=== PATIENT | male | born 1980 | race Two or more races ===

== ENCOUNTER 2020-06-06 23:05 | Emergency (ER) | payer SELFPAY ==
[~2020-06-06] VITALS: Ht 172.7 cm; Wt 86.2 kg
[2020-06-07 01:00] LABS: Basophils # (auto) 0 10 ^3/uL (0-0.2); Basophils % (auto) 0.4 % (0.0-2.0); Eosinophils # (auto) 0.1 10 ^3/uL (0-0.8); Eosinophils % (auto) 0.5 % (0.0-7.0); Hematocrit 45.8 % (41.0-53.0); Hemoglobin 15.3 g/dL (13.5-17.5); Lymphocytes # (auto) 1.8 10 ^3/uL (0.4-5.4); Lymphocytes % (auto) 15.3 % (10.0-50.0); Mean Corpuscular Hemoglobin 31.9 pg (28.0-32.0); Mean Corpuscular Hgb Conc. 33.5 g/dL (32.0-36.0); Mean Corpuscular Volume 95.2 fL (80.0-100.0); Monocytes # (auto) 0.6 10 ^3/uL (0-1.3); Monocytes % (auto) 5.5 % (0.0-12.0); Neutrophils % (auto) 78.3 % (37.0-80.0); Platelet Count (auto) 357 10^3/uL (140-450); Red Blood Cells 4.81 10^6/uL (4.5-5.90); Red Cell Distribution Width 13.2 % (11.8-14.3); White Blood Cell 11.5 10^3/uL (4.4-10.8)
[2020-06-07 01:17] LABS: Potassium 3.9 mmol/L (3.5-5.1)
[2020-06-07 01:20] LABS: Albumin 3.9 g/dL (3.4-5.0); Calcium 8.6 mg/dL (8.5-10.1); Magnesium 2.2 mg/dL (1.6-2.6)
[2020-06-07 01:22] LABS: Bilirubin, Total 0.7 mg/dL (0.2-1.0); Total Protein 7.8 g/dL (6.4-8.2)
[2020-06-07 04:28] LABS: Urine Bacteria NONE SEEN /hpf (None Seen); Urine Blood Negative /uL (Negative); Urine Specific Gravity 1.025 (1.001-1.035); Urine WBC <1 /hpf (0 - 3)
[2020-06-07] MEDS ORDERED: HYDROcodone-ACET 5/325MG TAB PO ONE (04:45)
[2020-06-07] MEDS ORDERED: ONDANSETRON ODT 4 MG TAB PO ONE (04:45)
[2020-06-07 06:35] VITALS: BP 147/89
== END 2020-06-07 06:44 | disposition home or self-care (01) ==
LOC: ER 23:07
DX: M54.5 Low back pain (principal); E11.9 Type 2 diabetes mellitus without complications; K21.9 Gastro-esophageal reflux disease without esophagitis; E78.5 Hyperlipidemia, unspecified
CPT/HCPCS: 36415; 74176; 80053; 81001; 82150; 83690; 83735; 85025

== ENCOUNTER 2023-03-29 06:38 | Inpatient (IN) | payer MEDICAID, OTHER ==
[~2023-03-29] VITALS: Ht 174 cm; Wt 96.8 kg
[2023-03-29] MEDS ORDERED: ONDANSETRON HCL 4 MG/2 ML VIAL IV ONE (08:30)
[2023-03-29] MEDS ORDERED: OCTREOTIDE ACETATE 100 MCG in SODIUM CHL 0.9% 50 ML IV ONE (08:30)
[2023-03-29] MEDS ORDERED: PANTOPRAZOLE 80 MG in SODIUM CHL 0.9% 100 ML IV ONE (08:30)
[2023-03-29] MEDS ORDERED: PANTOPRAZOLE 40mg/50ML NS AE 50 ML IV ONE (08:30)
[2023-03-29] MEDS ORDERED: SODIUM CHLORIDE 0.9% 1,000 ML IV ONE ×3 (08:30→11:00)
[2023-03-29 09:08] VITALS: O2SAT 98
[2023-03-29 09:23] LABS: Basophils # (auto) 0.1 10 ^3/uL (0-0.2); Basophils % (auto) 0.5 % (0.0-2.0); Eosinophils # (auto) 0.3 10 ^3/uL (0-0.8); Eosinophils % (auto) 2.8 % (0.0-7.0); Hematocrit 44.2 % (41.0-53.0); Hemoglobin 15.2 g/dL (13.5-17.5); Lymphocytes # (auto) 2.4 10 ^3/uL (0.4-5.4); Mean Corpuscular Hemoglobin 33.7 pg (28.0-32.0); Mean Corpuscular Hgb Conc. 34.3 g/dL (32.0-36.0); Mean Corpuscular Volume 98.2 fL (80.0-100.0); Monocytes # (auto) 0.8 10 ^3/uL (0-1.3); Monocytes % (auto) 7.7 % (0.0-12.0); Neutrophils # (auto) 6.6 10 ^3/uL (1.6-8.6); Nucleated Red Blood Cells % 0.1 %; Red Blood Cells 4.51 10^6/uL (4.5-5.90); Red Cell Distribution Width 13.6 % (11.8-14.3); White Blood Cell 10.2 10^3/uL (4.4-10.8)
[2023-03-29 09:26] LABS: Alanine Aminotransferase 159 U/L (7-40); Albumin 4.7 g/dL (3.2-4.8); Alkaline Phosphatase 195 U/L (46-116); Anion Gap 8 (5-15); Aspartate Aminotransferase 166 U/L (13-40); BUN/Creatinine Ratio 16.3 (10.0-20.0); Blood Urea Nitrogen 13 mg/dL (9-23); Calcium 9.6 mg/dL (8.7-10.4); Carbon Dioxide 25 mmol/L (20-30); Chloride 103 mmol/L (98-107); Glucose 129 mg/dL (74-106); Lipase 44 U/L (12-53); Magnesium 2.2 mg/dL (1.6-2.6); Potassium 4.2 mmol/L (3.5-5.1); Sodium 136 mmol/L (136-145)
[2023-03-29 09:27] LABS: Bilirubin, Total 1.7 mg/dL (0.2-1.0); Total Protein 8.2 g/dL (5.7-8.2)
[2023-03-29] MEDS: OCTREOTIDE ACETATE 500 MCG in SODIUM CHL 0.9% 99 ML IV SCH ×3 (09:39→21:21)
[2023-03-29] MEDS ORDERED: AZITHROMYCIN 500MG/ 250ML 250 ML IV ONE (09:45)
[2023-03-29] MEDS ORDERED: LORazepam 2MG/ML-1ML VIAL IV ONE (09:45)
[2023-03-29] MEDS ORDERED: cefTRIAXone 1GM/50ML D5W 50 ML IV ONE (09:45)
[2023-03-29 09:52] LABS: INR 1.04 (0.9-1.15); Prothrombin Time 10.9 sec (9.3-11.8)
[2023-03-29] MEDS ORDERED: PANTOPRAZOLE 40mg/50ML NS AE 50 ML IV SCH (11:00)
[2023-03-29] MEDS ORDERED: chlordiazePOXIDE HCL 25 MG CAP PO ONE (11:00)
[2023-03-29] MEDS ORDERED: LORazepam 2MG/ML-1ML VIAL IV PRN (11:00)
[2023-03-29] MEDS ORDERED: OCTREOTIDE ACETATE 500 MCG in SODIUM CHL 0.9% 99 ML IV SCH (11:00)
[2023-03-29] MEDS ORDERED: ACETAMINOPHEN 325 MG TAB PO PRN (11:15)
[2023-03-29] MEDS ORDERED: MORPHINE SULFATE INJ 2 MG/ml SYRG IV PRN (11:15)
[2023-03-29] MEDS ORDERED: NITROGLYCERIN 0.4 MG SL TAB SL PRN (11:15)
[2023-03-29] MEDS ORDERED: ONDANSETRON HCL 4 MG/2 ML VIAL IV PRN (11:15)
[2023-03-29] MEDS: SODIUM CHLORIDE 0.9% 1,000 ML IV SCH ×2 (11:31→18:46)
[2023-03-29 12:13] LABS: Triglycerides 216 mg/dL (< 150)
[2023-03-29 12:14] LABS: Blood Alcohol < 3.0 mg/dL (<10); LDL Cholesterol 189 mg/dL (< 100)
[2023-03-29 12:15] LABS: Cholesterol 256 mg/dL (< 200); HDL Cholesterol 33 mg/dL (40-59)
[2023-03-29] MEDS: FOLIC ACID 1 MG, MULTIPLE VITAMIN 10 ML, MAGNESIUM SULF SDV 50% 8 MEQ, THIAMINE INJ 100... INJ SCH ×5 (12:26)
[2023-03-29 12:35] LABS: Magnesium 2.1 mg/dL (1.6-2.6)
[2023-03-29 15:23] VITALS: BP 127/83; PULSE 76; RESP 18; TEMP 98.2; O2SAT 95
[2023-03-29 17:39] LABS: Amphetamine Screen, Urine Neg (NEGATIVE); Barbiturate Scree,Urine Neg (NEGATIVE)
[2023-03-29 17:40] LABS: Benzodiazephine Screen, Urine Neg (NEGATIVE); Cannabinoid Screen, Urine Pos (NEGATIVE); Cocaine Screen, Urine Neg (NEGATIVE); Opiate Scree,Urine Neg (NEGATIVE); Phencyclidine Screen, Urine Neg (NEGATIVE)
[2023-03-29 17:46] LABS: Urine Bacteria NONE SEEN /hpf (None Seen); Urine Blood Negative /uL (Negative); Urine Clarity Clear (Clear); Urine Color Yellow (Yellow); Urine Protein, UAD Negative (Negative); Urine Specific Gravity 1.022 (1.001-1.035); Urine Urobilinogen Normal (Negative); Urine WBC 1 /hpf (0 - 3); Urine pH 5.5 (5.0-8.0)
[2023-03-29 20:00] VITALS: BP 128/85; PULSE 82; PULSE 88; RESP 18; TEMP 98.4; O2SAT 95
[2023-03-29 22:00] VITALS: BP 128/85; PULSE 82; RESP 18; TEMP 98.4; O2SAT 95
[2023-03-30] VITALS (8 sets, daily range): BP systolic 112–123; BP diastolic 75–93; PULSE 75–90; RESP 16–18; TEMP 98.1–98.5; O2SAT 91–99
[2023-03-30] MEDS: SODIUM CHLORIDE 0.9% 1,000 ML IV SCH ×3 (05:26→21:15)
[2023-03-30 07:06] LABS: Basophils # (auto) 0 10 ^3/uL (0-0.2); Basophils % (auto) 0.6 % (0.0-2.0); Eosinophils # (auto) 0.3 10 ^3/uL (0-0.8); Eosinophils % (auto) 3.2 % (0.0-7.0); Hematocrit 42.1 % (41.0-53.0); Hemoglobin 14.2 g/dL (13.5-17.5); Lymphocytes # (auto) 1.9 10 ^3/uL (0.4-5.4); Lymphocytes % (auto) 21.9 % (10.0-50.0); Mean Corpuscular Hemoglobin 33.5 pg (28.0-32.0); Mean Corpuscular Hgb Conc. 33.8 g/dL (32.0-36.0); Mean Corpuscular Volume 99.2 fL (80.0-100.0); Monocytes # (auto) 0.6 10 ^3/uL (0-1.3); Monocytes % (auto) 7.2 % (0.0-12.0); Neutrophils # (auto) 5.7 10 ^3/uL (1.6-8.6); Neutrophils % (auto) 67.1 % (37.0-80.0); Nucleated Red Blood Cells % 0.3 %; Red Blood Cells 4.25 10^6/uL (4.5-5.90); Red Cell Distribution Width 13.7 % (11.8-14.3); White Blood Cell 8.5 10^3/uL (4.4-10.8)
[2023-03-30 07:11] LABS: Alanine Aminotransferase 192 U/L (7-40); Albumin 4.2 g/dL (3.2-4.8); Alkaline Phosphatase 151 U/L (46-116); Anion Gap 6 (5-15); Aspartate Aminotransferase 267 U/L (13-40); Bilirubin, Total 2.2 mg/dL (0.2-1.0); Calcium 8.8 mg/dL (8.5-10.1); Carbon Dioxide 25 mmol/L (20-30); Chloride 104 mmol/L (98-107); Glucose 127 mg/dL (74-106); Sodium 135 mmol/L (136-145); Total Protein 7.6 g/dL (5.7-8.2)
[2023-03-30 07:12] LABS: BUN/Creatinine Ratio 6.8 (10.0-20.0); Blood Urea Nitrogen < 5 mg/dL (9-23)
[2023-03-30 07:13] LABS: INR 1.05 (0.9-1.15); Partial Thromboplastin Time 26.8 SEC (24.5-34.5)
[2023-03-30] MEDS ORDERED: MIDAZOLAM HCL 5 MG/ML-1ML VIAL ONE (08:07)
[2023-03-30] MEDS ORDERED: LIDOCAINE VISCOUS 2% 15ML UD ONE (08:07)
[2023-03-30] MEDS ORDERED: diphenhdrAMINE HCL 50 MG/1 ML VL ONE (08:07)
[2023-03-30] MEDS ORDERED: fentaNYL CITRATE 100 MCG/2 ML VL ONE (08:08)
[2023-03-30] MEDS: OCTREOTIDE ACETATE 500 MCG in SODIUM CHL 0.9% 99 ML IV SCH (08:35)
[2023-03-30] MEDS ORDERED: cefTRIAXone 1GM/50ML D5W 50 ML IV ONE (12:45)
[2023-03-30] MEDS ORDERED: AZITHROMYCIN 500MG/ 250ML 250 ML IV ONE (12:45)
[2023-03-30] MEDS ORDERED: IOHEXOL 350 MG/ML 100ML IJ ONE (13:03)
[2023-03-30] MEDS ORDERED: MIDAZOLAM HCL 5 MG/ML-1ML VIAL IV ONE ×3 (16:35→16:41)
[2023-03-30] MEDS ORDERED: fentaNYL CITRATE 100 MCG/2 ML VL IV ONE ×2 (16:35→16:37)
[2023-03-30] MEDS ORDERED: diphenhdrAMINE HCL 50 MG/1 ML VL IV ONE ×2 (16:35→16:36)
[2023-03-30] MEDS: SUCRALFATE 1 GM/10 ML ORAL SUSP PO SCH ×2 (18:00→21:16)
[2023-03-30] MEDS: FOLIC ACID 1 MG, MULTIPLE VITAMIN 10 ML, MAGNESIUM SULF SDV 50% 8 MEQ, THIAMINE INJ 100... INJ SCH ×5 (18:20)
[2023-03-30] MEDS: PANTOPRAZOLE 40 MG TAB PO SCH (21:16)
[2023-03-31 08:00] VITALS: BP 122/77; PULSE 74; PULSE 77; RESP 16; RESP 18; TEMP 98.5; O2SAT 97
[2023-03-31] MEDS ORDERED: cefTRIAXone 1GM/50ML D5W 50 ML IV SCH (09:00)
[2023-03-31] MEDS: PANTOPRAZOLE 40 MG TAB PO SCH ×2 (10:00→22:10)
[2023-03-31] MEDS ORDERED: AZITHROMYCIN 500MG/ 250ML 250 ML IV SCH (10:00)
[2023-03-31] MEDS: SUCRALFATE 1 GM/10 ML ORAL SUSP PO SCH ×4 (11:30→22:10)
[2023-03-31 12:41] LABS: Magnesium 2.5 mg/dL (1.6-2.6)
[2023-03-31] MEDS ORDERED: DOXYCYCLINE 100MG/250ML 250 ML IV ONE (12:45)
[2023-03-31 12:46] LABS: Hepatitis B Surface Antigen Negative (Negative)
[2023-03-31 12:49] VITALS: TEMP 36.9
[2023-03-31 13:07] LABS: Hepatitis A Ab IgM Negative; Hepatitis B Core IgM Negative
[2023-03-31 13:08] LABS: Hepatitis C Antibody Negative (Negative)
[2023-03-31] MEDS: FOLIC ACID 1 MG, MULTIPLE VITAMIN 10 ML, MAGNESIUM SULF SDV 50% 8 MEQ, THIAMINE INJ 100... INJ SCH ×5 (14:32)
[2023-03-31] MEDS: DOXYCYCLINE 100MG/250ML 250 ML IV SCH (14:33)
[2023-03-31 14:35] LABS: Basophils # (auto) 0.1 10 ^3/uL (0-0.2); Basophils % (auto) 0.7 % (0.0-2.0); Eosinophils # (auto) 0.2 10 ^3/uL (0-0.8); Eosinophils % (auto) 2.4 % (0.0-7.0); Hematocrit 42.5 % (41.0-53.0); Hemoglobin 14.1 g/dL (13.5-17.5); Lymphocytes # (auto) 1.9 10 ^3/uL (0.4-5.4); Lymphocytes % (auto) 23.7 % (10.0-50.0); Mean Corpuscular Hemoglobin 33.6 pg (28.0-32.0); Mean Corpuscular Hgb Conc. 33.3 g/dL (32.0-36.0); Monocytes # (auto) 0.7 10 ^3/uL (0-1.3); Monocytes % (auto) 8.5 % (0.0-12.0); Neutrophils # (auto) 5.2 10 ^3/uL (1.6-8.6); Neutrophils % (auto) 64.7 % (37.0-80.0); Nucleated Red Blood Cells % 0.4 %; Red Blood Cells 4.21 10^6/uL (4.5-5.90); Red Cell Distribution Width 13.8 % (11.8-14.3)
[2023-03-31 15:29] LABS: Alanine Aminotransferase 158 U/L (7-40); Albumin 4.1 g/dL (3.2-4.8); Alkaline Phosphatase 146 U/L (46-116); Anion Gap 10 (5-15); Aspartate Aminotransferase 160 U/L (13-40); BUN/Creatinine Ratio 7.4 (10.0-20.0); Blood Urea Nitrogen 6 mg/dL (9-23); Calcium 8.8 mg/dL (8.5-10.1); Carbon Dioxide 22 mmol/L (20-30); Chloride 104 mmol/L (98-107); Glucose 124 mg/dL (74-106); Potassium 4.3 mmol/L (3.5-5.1); Sodium 136 mmol/L (136-145)
[2023-03-31 15:30] LABS: Bilirubin, Total 1.6 mg/dL (0.2-1.0); Total Protein 7.6 g/dL (5.7-8.2)
[2023-03-31 16:40] VITALS: BP 130/96; PULSE 78; RESP 18; TEMP 98.5; O2SAT 98
[2023-03-31 19:30] VITALS: BP 113/84; PULSE 73; PULSE 76; PULSE 88; RESP 18; TEMP 98.5; O2SAT 95
[2023-03-31 22:00] VITALS: BP 139/85; PULSE 73; RESP 19; TEMP 99; O2SAT 95
[2023-04-01 02:40] LABS: COVID19 ANTIGEN SOFIA FIA NEGATIVE (NEGATIVE); Rapid Influenza A Negative (Negative); Rapid Influenza B Negative (Negative)
[2023-04-01] MEDS: DOXYCYCLINE 100MG/250ML 250 ML IV SCH (02:53)
[2023-04-01 05:00] VITALS: BP 148/97; PULSE 72; RESP 18; TEMP 99.1; O2SAT 95
[2023-04-01] MEDS: SUCRALFATE 1 GM/10 ML ORAL SUSP PO SCH ×3 (06:02→14:18)
[2023-04-01 06:34] LABS: Alanine Aminotransferase 140 U/L (7-40); Albumin 4.5 g/dL (3.2-4.8); Alkaline Phosphatase 182 U/L (46-116); Anion Gap 9 (5-15); Aspartate Aminotransferase 113 U/L (13-40); BUN/Creatinine Ratio 7.1 (10.0-20.0); Bilirubin, Total 1.6 mg/dL (0.2-1.0); Blood Urea Nitrogen 6 mg/dL (9-23); Calcium 9.3 mg/dL (8.5-10.1); Carbon Dioxide 24 mmol/L (20-30); Chloride 102 mmol/L (98-107); Glucose 114 mg/dL (74-106); Potassium 3.8 mmol/L (3.5-5.1); Sodium 135 mmol/L (136-145)
[2023-04-01 06:35] LABS: Total Protein 8.1 g/dL (5.7-8.2)
[2023-04-01 08:00] VITALS: BP 148/97; PULSE 72; RESP 18; TEMP 99.1; O2SAT 96
[2023-04-01 09:00] VITALS: BP 129/78; PULSE 72; RESP 18; TEMP 98.3; O2SAT 100
[2023-04-01] MEDS: PANTOPRAZOLE 40 MG TAB PO SCH (09:08)
[2023-04-01] MEDS ORDERED: SUCR1SUS26 PO (09:24)
[2023-04-01] MEDS ORDERED: PANT40T PO (09:24)
[2023-04-01] MEDS ORDERED: DOX100T PO (09:24)
[2023-04-01] MEDS ORDERED: LISINOPRIL 5 MG TAB PO SCH (10:00)
[2023-04-01] MEDS ORDERED: DOXYCYCLINE 100 MG TAB/CAP PO SCH (10:00)
[2023-04-01 12:30] VITALS: BP 134/90; PULSE 68; RESP 19; TEMP 98.3; O2SAT 97
[2023-04-01] MEDS ORDERED: DOXYCYCLINE 100MG/250ML 250 ML IV SCH (15:00)
[2023-04-01] MEDS ORDERED: APIXABAN 5 MG TAB PO SCH (22:00)
== END 2023-04-01 14:00 | disposition home or self-care (01) | DRG 241 ==
LOC: ER 06:38 → TELE 11:04 → TELE-WESTW 15:09 → WEST WING 04-01 02:50
PROVIDERS: ADMIT Nurse Practitioner Family; ATTEND Internal Medicine Pulmonary Disease
PROC: 0DB68ZX Excision of Stomach, Via Natural or Artificial Opening Endoscopic, Diagnostic (ICD-10-PCS; 2023-03-30)
PROC: 0DB38ZX Excision of Lower Esophagus, Via Natural or Artificial Opening Endoscopic, Diagnostic (ICD-10-PCS; 2023-03-30)
PROC: 0DB98ZX Excision of Duodenum, Via Natural or Artificial Opening Endoscopic, Diagnostic (ICD-10-PCS; principal; 2023-03-30 16:30)
DX: K29.80 Duodenitis without bleeding (principal); J18.9 Pneumonia, unspecified organism; K83.1 Obstruction of bile duct; K75.9 Inflammatory liver disease, unspecified; R16.0 Hepatomegaly, not elsewhere classified; R04.2 Hemoptysis; I82.612 Acute embolism and thrombosis of superficial veins of left upper extremity; K76.0 Fatty (change of) liver, not elsewhere classified; K21.00 Gastro-esophageal reflux disease with esophagitis, without bleeding; K29.90 Gastroduodenitis, unspecified, without bleeding; E66.01 Morbid (severe) obesity due to excess calories; Z20.822 Contact with and (suspected) exposure to COVID-19; F10.139 Alcohol abuse with withdrawal, unspecified; I34.0 Nonrheumatic mitral (valve) insufficiency; Z68.32 Body mass index [BMI] 32.0-32.9, adult; E11.9 Type 2 diabetes mellitus without complications; F12.90 Cannabis use, unspecified, uncomplicated; E78.5 Hyperlipidemia, unspecified; F17.210 Nicotine dependence, cigarettes, uncomplicated; F41.9 Anxiety disorder, unspecified; K44.9 Diaphragmatic hernia without obstruction or gangrene; F19.10 Other psychoactive substance abuse, uncomplicated; Z82.49 Family history of ischemic heart disease and other diseases of the circulatory system; Z83.3 Family history of diabetes mellitus; Z71.3 Dietary counseling and surveillance; Z71.6 Tobacco abuse counseling
CPT/HCPCS: 36415; 43239; 71045; 71275; 74176; 76705; 80053; 80061; 80074; 80307; 80320; 81001; 82140; 83036; 83690; 83735; 83880; 84443; 84484; 85025; 85379; 85610; 85730; 86850; 86900; 86901; 87070; 87081; 87205; 87426; 87804; 93306; 93971; 96361; 96365; 96368; 96375; C9113; G0378; J0696; J2250; J2405; J3490

== ENCOUNTER 2025-05-06 22:45 | Inpatient (IN) | payer MEDICAID, OTHER ==
[~2025-05-06] VITALS: Ht 174 cm; Wt 94.5 kg
[~2025-05-06 22:45] MED LIST: DOX100T PO; PANT40T PO; SUCR1SUS26 PO
[2025-05-06 23:26] LABS: Hematocrit 47.2 % (41.0-53.0); Hemoglobin 16.2 g/dL (13.5-17.5); Mean Corpuscular Hemoglobin 33.1 pg (28.0-32.0); Mean Corpuscular Volume 96.3 fL (80.0-100.0); Nucleated Red Blood Cells % 0.0 %
[2025-05-07] VITALS (8 sets, daily range): BP systolic 123–132; BP diastolic 79–90; PULSE 80–98; RESP 18–19; TEMP 97.8–98.6; O2SAT 95–99
--- NOTE | 2025-05-07 00:06 | ED.PDOC ---
Musculoskeletal HPI Comments 45 year old male presents to ER for wound check. Patient presents to ER for evaluation of non-healing wound to right leg that he states occurred one week ago s/p trip/fall and hitting his right leg against rocks. He reports 4/10 tender pain to wound of right leg and reports yellow purulent drainage to the wound. Patient presents to ER ambulatory on arrival, with steady gait, in no distress. Denies fever, body aches, chills, calf pain, night sweats or any further symptoms/complaints Chief Complaint: Lower Extremity Time Seen by MD: 22:58 Primary Care Provider: UNKNOWN Reviewed Notes: Nurses Notes, Medications, Allergies Allergies: Coded Allergies: NO KNOWN ALLERGIES (Unverified , 03/29/23) Home Meds Active Scripts Doxycycline Monohydrate (Doxycycline Monohydrate) 100 Mg Tab, 100 MG PO Q12HR for 4 Days, #8 TAB Prov:AMALIA CUMMINGS MD 04/01/23 Sucralfate (CARAFATE SUSP) 1 Gm/10 Ml Ss, 1 GM PO QIDACHS for 30 Days, #120 ML Prov:AMALIA CUMMINGS MD 04/01/23 Pantoprazole Sodium Sesquihydr (Pantoprazole Sodium) 40 Mg Tab, 40 MG PO BID for 30 Days, #60 TAB Prov:AMALIA CUMMINGS MD 04/01/23 Information Source: Patient Mode of Arrival: Ambulatory Last Tetanus: Unknown Past Medical History PAST MEDICAL HISTORY: Anxiety, GERD, High Lipids, Liver, UTI'S Surgical History: Denies all surgeries Family History Family History: Unknown Social History Smoker: Non-Smoker Alcohol: Heavy Drugs: Marijuana Lives In: Home Constitutional: denies: chills, diaphoresis, fatigue, fever, malaise, sweats, weakness, others EENTM: denies: blurred vision, double vision, ear bleeding, ear discharge, ear drainage, ear pain, ear ringing, eye pain, eye redness, hearing loss, mouth pain, mouth swelling, nasal discharge, nose bleeding, nose congestion, nose pain, photophobia, tearing, throat pain, throat swelling, voice changes, others Respiratory: denies: cough, hemoptysis, orthopnea, SOB at rest, shortness of breath, SOB with excertion, stridor, wheezing, others Cardiovascular: denies: chest pain, dizzy spells, diaphoresis, Dyspnea on exertion, edema, irregular heart beat, left arm pain, lightheadedness, palpitations, PND, syncope, others Gastrointestinal: denies: abdomen distended, abdominal pain, blood streaked bowels, constipated, diarrhea, dysphagia, difficulty swallowing, hematemesis, melena, nausea, poor appetite, poor fluid intake, rectal bleeding, rectal pain, vomiting, others Genitourinary: denies: burning, dysuria, flank pain, frequency, hematuria, incontinence, penile discharge, penile sore, pain, testicle pain, testicle swelling, urgency, others Neurological: denies: dizziness, fainting, headache, left sided numbness, left sided weakness, numbness, paresthesia, pre-existing deficit, right sided numbness, right sided weakness, seizure, speech problems, tingling, tremors, weakness, others Musculoskeletal: denies: back pain, gout, joint pain, joint swelling, muscle pain, muscle stiffness, neck pain, others Integumetry: reports: others (As stated in HPI) Allergic/Immunocompromised: denies: Difficulty Healing, Frequent Infections, Hives, Itching, others Hematologic/Lymphatic: denies: anemia, blood clots, easy bleeding, easy bruising, swollen glands, others Endocrine: denies: excessive hunger, excessive sweating, excessive thirst, excessive urination, flushing, intolerance to cold, intolerance to heat, unexplained weight gain, unexplained weight loss, others Psychiatric: denies: anxiety, bipolar disorder, depression, hopeless, panic disorder, schizophrenia, sleepless, suicidal, others Physical Exam General Appearance: No Apparent Distress HEENT: PERRL/EOMI Neck: Full Range of Motion, Non-Tender, Normal Respiratory: Chest Non-Tender, Lungs Clear, No Accessory Muscle Use, No Respiratory Distress, Normal Breath Sounds Cardiovascular: No Murmur, No Gallop, Regular Rate/Rhythm Breast Exam: Deferred Gastrointestinal: NOT DONE Genitalia: Deferred Pelvic: Deferred Rectal: Deferred Extremities: No calf tenderness, Normal capillary refill, Normal range of motion Neurologic: Alert, No Motor Deficits, Normal Affect, Normal Mood, No Sensory Deficits Cerebellar Function: Normal Reflexes: Normal Skin: Dry, Warm Peripheral Pulses: 2+ dorsalis pedis (R), 2+ dorsalis pedis (L), 2+ Radial (R), 2+ Radial (L), 2+ Brachial (R), 2+ Brachial (L) Lymphatic: No Adenopathy Was a procedure done? Was a procedure done?: No Sedation Sedation?: No Images 1 - 3 cm x 3 cm wound to right anterior leg noted with mild yellow drainage. Moderate surrounding swelling/erythema/TTP noted to wound edges. No fluctuance appreciated Differential Diagnosis EXT Differential Diagnosis: Deep Vein Thrombosis, Fracture, Neurovascular injury, Other (Abscess) X-Ray, Labs, Meds, VS Vital Signs Date Time Temp Pulse Resp B/P (MAP) Pulse Ox O2 Delivery O2 Flow Rate FiO2 05/06/25 23:55 98.2 105 20 147/90 (109) 96 98.2 05/06/25 23:55 105 20 05/06/25 22:47 98.2 105 20 144/5 96 98.2 Lab Test 05/07/25 00:16 05/06/25 23:12 Range/Units Sodium Level 140 136-145 mmol/L Potassium Level 3.7 3.5-5.1 mmol/L Chloride Level 105 98-107 mmol/L Carbon Dioxide Level 20 20-31 mmol/L Anion Gap 15 5-15 Blood Urea Nitrogen 11 9-23 mg/dL Creatinine 0.90 0.700-1.30 mg/dL Glomerular Filtration Rate Calc 109 >90 mL/min BUN/Creatinine Ratio 12.2 10.0-20.0 Serum Glucose 113 H 74-106 mg/dL Lactic Acid Level 2.0 0.4-2.0 mmol/L Calcium Level 9.7 8.7-10.4 mg/dL White Blood Count 13.8 H 4.4-10.8 10^3/uL Red Blood Count 4.90 4.5-5.90 10^6/uL Hemoglobin 16.2 13.5-17.5 g/dL Hematocrit 47.2 41.0-53.0 % Mean Corpuscular Volume 96.3 80.0-100.0 fL Mean Corpuscular Hemoglobin 33.1 H 28.0-32.0 pg Mean Corpuscular Hemoglobin Concent 34.4 32.0-36.0 g/dL Red Cell Distribution Width 13.4 11.8-14.3 % Platelet Count 298 140-450 10^3/uL Mean Platelet Volume 8.1 6.9-10.8 fL Neutrophils (%) (Auto) 65.2 37.0-80.0 % Lymphocytes (%) (Auto) 25.5 10.0-50.0 % Monocytes (%) (Auto) 7.2 0.0-12.0 % Eosinophils (%) (Auto) 1.2 0.0-7.0 % Basophils (%) (Auto) 0.9 0.0-2.0 % Neutrophils # (Auto) 9.0 H 1.6-8.6 10 ^3/uL Lymphocytes # (Auto) 3.5 0.4-5.4 10 ^3/uL Monocytes # (Auto) 1.0 0-1.3 10 ^3/uL Eosinophils # (Auto) 0.2 0-0.8 10 ^3/uL Basophils # (Auto) 0.1 0-0.2 10 ^3/uL Nucleated Red Blood Cells 0.0 % Current Medications Medications (Trade) Dose Ordered Sig/Reilly Route Start Time Stop Time Status Last Admin Clindamycin Phosphate 50 ml @ 50 mls/hr ONCE ONCE IV 05/07/25 00:00 05/07/25 00:59 DC 05/07/25 00:31 Ceftriaxone Sodium 50 ml @ 100 mls/hr ONCE ONCE IV 05/07/25 00:00 05/07/25 00:29 DC 05/07/25 01:05 PATIENT: MACKENZIE CUELLAR: [id number]: [id number] : 1980 LOC: OVERFLOW ROOM / BED: [address] [place] [address] / AGE / SEX: 45 / M ADM STATUS: ADM IN SERVICE [id number] ORDERING PHYSICIAN: CARMEN JONES PROCEDURE(s): RTBFB - R TIB FIB XRAY REASON: right tib-fib pain ORDER NUMBER(s): [id number], ACCESSION NUMBER(s): [id number] MEDICAL RECORDS NUMBER: [id number] PROCEDURE: XY R TIB FIB XRAY DATE: 05/07/2025 12:40 AM HISTORY: right tib-fib pain COMPARISON: None FINDINGS/IMPRESSION: No fracture dislocation or other acute abnormality is seen. ATED BY: MOISÉS CRUZ MD DICTATED DATE/TIME: 05/07/25109 SIGNED BY: MOISÉS CRUZ MD SIGNED DATE/TIME: 05/07/25109 CC: CBC reviewed- + leukocytosis, + neutrophilia BMP reviewed without any significant abnormalities Lactic acid reviewed - normal Blood culture ordered Wound culture ordered Hep-Lock IV ordered Clindamycin 900 mg IV ordered Rocephin 1 g IV ordered Tdap ordered Right tib-fib x-ray ordered Patient verbalized understanding and agreeable with current plan of care Patient admitted to hospitalist for nonhealing wound on right lower extremity and need for IV antibiotics Images Reviewed?: Images reviewed and evaluated by me Time of 1ST Reevaluation: 23:44 Reevaluation 1ST: N/A Patient Education/Counseling: Diagnosis, Treatment, Prognosis, Need For Follow Up Family Education/Counseling: No Family Present Sepsis Sepsis Reasesment Focused Exam Orders: Laboratory Tests 05/07/25 00:16: Lactic Acid Level 2.0 Departure 1 Departure Time of Disposition: 00:03 Impression: Primary Impression: Cellulitis of right leg Additional Impression: Non-healing wound of right lower extremity Disposition: 09 ADMITTED INPATIENT Condition: Stable Critical Care Note Critical Care Time?: No Stability Stability form required: No Heart Score Heart Score: Heart Score Response (Comments) Value History N/A 0 EKG N/A 0 Age N/A 0 Risk Factors N/A 0 Troponin N/A 0 Total 0 CARMEN JONES May 07, 2025 00:06
[2025-05-07] MEDS: TETANUS-DIPTH-ACEL PERTUSSIS 0.5ML SYR Tdap IM ONE (00:23)
[2025-05-07] MEDS: CLINDAMYCIN 900MG IV 50 ML IV ONE (00:31)
[2025-05-07 00:45] LABS: Chloride 105 mmol/L (98-107); Potassium 3.7 mmol/L (3.5-5.1); Sodium 140 mmol/L (136-145)
[2025-05-07] MEDS ORDERED: ONDANSETRON HCL 4 MG/2 ML VIAL IV PRN (00:45)
[2025-05-07] MEDS ORDERED: ACETAMINOPHEN 325 MG TAB PO PRN (00:45)
[2025-05-07 00:46] LABS: Anion Gap 15 (5-15); Calcium 9.7 mg/dL (8.7-10.4); Carbon Dioxide 20 mmol/L (20-31)
[2025-05-07 00:51] LABS: BUN/Creatinine Ratio 12.2 (10.0-20.0); Blood Urea Nitrogen 11 mg/dL (9-23)
[2025-05-07 01:00] LABS: Glucose 113 mg/dL (74-106)
--- NOTE | 2025-05-07 01:13 | DVH ---
MEDICAL RECORDS NUMBER: [id number] PROCEDURE: XY R TIB FIB XRAY DATE: 05/07/2025 12:40 AM HISTORY: right tib-fib pain COMPARISON: None FINDINGS/IMPRESSION: No fracture dislocation or other acute abnormality is seen.
--- NOTE | 2025-05-07 04:14 | DVHHP2 ---
History of Present Illness Reason for Visit: Wound check History of Present Illness 45-year-old male presents for evaluation of nonhealing wound. Patient reports having an accident a week ago where he tripped and fell again some rocks. Patient reports having a nonhealing wound to his right leg with some discharge and redness. Denies fever or chills. No other acute complaints. Past Medical History Dyslipidemia, GERD Past Surgical History Denies Family History Noncontributory Smoke: No ALCOHOL: occassional Drugs: Marijuana Lives: with Family Review of Systems Review of Systems Review of systems are currently negative otherwise addressed in HPI. Allergies: Coded Allergies: NO KNOWN ALLERGIES (Unverified , 03/29/23) Medications Current Medications Medications Dose Ordered Sig/Reilly Route Start Time Stop Time Status Last Admin Dose Admin Ceftriaxone Sodium 50 ml @ 100 mls/hr DAILY IV 05/08/25 10:00 Clindamycin Phosphate 50 ml @ 50 mls/hr Q8HR IV 05/07/25 06:00 Acetaminophen/ Hydrocodone Bitart 1 tab Q6HP PRN PO 05/07/25 00:45 Ondansetron HCl 4 mg Q4HP PRN IV 05/07/25 00:45 Acetaminophen 650 mg Q6HP PRN PO 05/07/25 00:45 Exam Vital Signs Vital Signs Date Time Temp Pulse Resp B/P (MAP) Pulse Ox O2 Delivery O2 Flow Rate FiO2 05/07/25 03:41 98.4 85 18 125/79 (94) 97 98.4 Exam Gen: 45-year-old male in mild distress. Skin: Warm, dry, normal color and texture, no rash. HEENT: Normocephalic atraumatic, mucous membranes moist and pink. Neck: Cervical and supraclavicular nodes normal without enlargement, trachea is midline, thyroid gland is normal without masses. Pulmonary: Clear to auscultation and percussion bilaterally. Cardiac: Regular rate and rhythm. No murmur Abdomen: Soft, nontender, nondistended, bowel sounds present all 4 quadrants, no guarding, no rigidity, no organomegaly. Extremities: No cyanosis, clubbing, no edema Neuro: Cranial nerves II through XII grossly intact, normal affect and speech, no focal motor deficits. Labs/Xrays ORDERING PHYSICIAN: CARMEN JONES PROCEDURE(s): RTBFB - R TIB FIB XRAY REASON: right tib-fib pain ORDER NUMBER(s): [id number], ACCESSION NUMBER(s): [id number] MEDICAL RECORDS NUMBER: [id number] PROCEDURE: XY R TIB FIB XRAY DATE: 05/07/2025 12:40 AM HISTORY: right tib-fib pain COMPARISON: None FINDINGS/IMPRESSION: No fracture dislocation or other acute abnormality is seen. Labs Test 05/07/25 00:16 05/06/25 23:12 Range/Units Sodium Level 140 136-145 mmol/L Potassium Level 3.7 3.5-5.1 mmol/L Chloride Level 105 98-107 mmol/L Carbon Dioxide Level 20 20-31 mmol/L Anion Gap 15 5-15 Blood Urea Nitrogen 11 9-23 mg/dL Creatinine 0.90 0.700-1.30 mg/dL Glomerular Filtration Rate Calc 109 >90 mL/min BUN/Creatinine Ratio 12.2 10.0-20.0 Serum Glucose 113 H 74-106 mg/dL Lactic Acid Level 2.0 0.4-2.0 mmol/L Calcium Level 9.7 8.7-10.4 mg/dL White Blood Count 13.8 H 4.4-10.8 10^3/uL Red Blood Count 4.90 4.5-5.90 10^6/uL Hemoglobin 16.2 13.5-17.5 g/dL Hematocrit 47.2 41.0-53.0 % Mean Corpuscular Volume 96.3 80.0-100.0 fL Mean Corpuscular Hemoglobin 33.1 H 28.0-32.0 pg Mean Corpuscular Hemoglobin Concent 34.4 32.0-36.0 g/dL Red Cell Distribution Width 13.4 11.8-14.3 % Platelet Count 298 140-450 10^3/uL Mean Platelet Volume 8.1 6.9-10.8 fL Neutrophils (%) (Auto) 65.2 37.0-80.0 % Lymphocytes (%) (Auto) 25.5 10.0-50.0 % Monocytes (%) (Auto) 7.2 0.0-12.0 % Eosinophils (%) (Auto) 1.2 0.0-7.0 % Basophils (%) (Auto) 0.9 0.0-2.0 % Neutrophils # (Auto) 9.0 H 1.6-8.6 10 ^3/uL Lymphocytes # (Auto) 3.5 0.4-5.4 10 ^3/uL Monocytes # (Auto) 1.0 0-1.3 10 ^3/uL Eosinophils # (Auto) 0.2 0-0.8 10 ^3/uL Basophils # (Auto) 0.1 0-0.2 10 ^3/uL Nucleated Red Blood Cells 0.0 % SEPSIS Sepsis Screen Date sepsis recognized/suspect: May 06, 2025 Time Sepsis recognized/suspect: 2248 Recent Procedure: No On Antibiotic Therapy: No Respiratory Rate >20: No Heart Rate >90: No Temp<36 C (96.8 F) or >38.3 C: No SBP <90 or MAP <65 mmHG: No New Acute Mental Status Change: No Is the patient on CPAP, BIPAP,: No Physician Orders Blood Culture (05/06/25 23:54) R Tib Fib Xray (05/06/25 23:54) Heplock Iv (05/06/25 ) Wound Culture W/ Gs (05/06/25 23:58) Admit (05/07/25 00:39) Clindamycin 600mg Iv (Cleocin Iv) (05/07/25 06:00) Basic Metabolic Panel (05/08/25 04:00) Hydrocodone-Acet 5/325mg Tab ([place] 5/32 (05/07/25 00:45) Ondansetron Hcl (Zofran) (05/07/25 00:45) Complete Blood Count (05/08/25 04:00) Condition: Stable (05/07/25 00:40) Acetaminophen Tablet (Tylenol Tablet) (05/07/25 00:45) Bedrest With Bathroom Privileg (05/07/25 00:40) Ceftriaxone 1gm/50ml (Rocephin) (05/08/25 10:00) Vital Signs Date Time Temp Pulse Resp B/P (MAP) Pulse Ox O2 Delivery O2 Flow Rate FiO2 05/07/25 03:41 98.4 85 18 125/79 (94) 97 98.4 05/06/25 23:55 98.2 105 20 147/90 (109) 96 98.2 11/17/25 23:55 105 20 05/06/25 22:47 98.2 105 20 144/5 96 98.2 Laboratory Tests Test 05/06/25 23:12 05/07/25 00:16 White Blood Count 13.8 10^3/uL (4.4-10.8) H Lactic Acid Level 2.0 mmol/L (0.4-2.0) Medications Medications Dose Ordered Sig/Reilly Route Start Time Stop Time Status Last Admin Dose Admin Ceftriaxone Sodium 50 ml @ 100 mls/hr ONCE ONCE IV 05/07/25 00:00 05/07/25 00:29 DC 05/07/25 01:05 100 MLS/HR Clindamycin Phosphate 50 ml @ 50 mls/hr ONCE ONCE IV 05/07/25 00:00 05/07/25 00:59 DC 05/07/25 00:31 50 MLS/HR Assessment/Plan Assessment/Plan Assessment Right lower extremity infected wound Cellulitis Leukocytosis Plan Admit the patient to [facility] to the hospitalist Wound culture pending Rocephin/clindamycin Continue treatment per orders Plan discussed with: Patient My Orders Orders - SHILO SANCHES Procedure Category Date Status Time Admit ADMIT 05/07/25 Transmitted 00:39 Clindamycin 600mg Iv PHA 05/07/25 In Process (Cleocin Iv) 06:00 Basic Metabolic Panel LAB 05/08/25 Verified 04:00 Hydrocodone-Acet PHA 05/07/25 In Process 5/325mg Tab ([place] 00:45 Ondansetron Hcl PHA 05/07/25 In Process (Zofran) 00:45 Complete Blood Count LAB 05/08/25 Verified 04:00 Condition: Stable PEGGY 05/07/25 In Process 00:40 Acetaminophen Tablet PHA 05/07/25 In Process (Tylenol Tablet) 00:45 Bedrest With Bathroom PEGGY 05/07/25 In Process Privileg 00:40 Ceftriaxone 1gm/50ml PHA 05/08/25 In Process (Rocephin) 10:00 Date of Service: May 07, 2025 Billing Provider: SHILO SANCHES Common Visit Codes: [id number] INP/OBS CARE (MOD) SHILO SANCHES May 07, 2025 04:14
[2025-05-07] MEDS: CLINDAMYCIN 600MG IV 50 ML IV SCH (05:04)
[2025-05-07 08:40] LABS: Hematocrit 42.5 % (41.0-53.0); Hemoglobin 14.8 g/dL (13.5-17.5); Mean Corpuscular Hemoglobin 33.7 pg (28.0-32.0); Mean Corpuscular Volume 97.0 fL (80.0-100.0); Nucleated Red Blood Cells % 0.0 %
[2025-05-07 08:54] LABS: Albumin 4.5 g/dL (3.2-4.8); Anion Gap 11 (5-15); BUN/Creatinine Ratio 16.1 (10.0-20.0); Bilirubin, Total 0.9 mg/dL (0.2-1.0); Blood Urea Nitrogen 15 mg/dL (9-23); Calcium 9.2 mg/dL (8.7-10.4); Carbon Dioxide 23 mmol/L (20-31); Chloride 105 mmol/L (98-107); Magnesium 2.3 mg/dL (1.6-2.6); Potassium 3.8 mmol/L (3.5-5.1); Sodium 139 mmol/L (136-145); Total Protein 7.6 g/dL (5.7-8.2)
[2025-05-07 08:55] LABS: Alanine Aminotransferase 73 U/L (7-40); Alkaline Phosphatase 191 U/L (46-116); Glucose 126 mg/dL (74-106)
--- NOTE | 2025-05-07 10:19 | DVHPNRES ---
Progress Note Date Seen: May 07, 2025 Resident Creating Document: ULICES QUINONES RESDIENT Medical Necessity Reason Pt with a Central, PICC or Fol: No Subjective Review of Systems This is a 45-year-old male with no significant past medical history came to the hospital due to nonhealing traumatic injury below the right knee. Per patient, 1 week back he tripped, fell and hit his right smart on stone. Post fall, he had abrasion and sloughing of the skin, with mild bleeding. He denies loss of consciousness, nausea and vomiting. The wound progressively worsened, increased pain, and started to have scant amount purulent discharge. Today, patient seen and examined at the bedside. Patient is still complaining of pain of right knee. Objective vital signs Vital Sign Date Time Temp Pulse Resp B/P (MAP) Pulse Ox O2 Delivery O2 Flow Rate FiO2 05/07/25 09:01 97.8 92 18 131/80 (97) 96 97.8 05/07/25 03:41 Room Air* 0 21 Total Intake and Output 05/06/25 05/06/25 05/07/25 15:00 23:00 07:00 Intake Total 150 ml Balance 150 ml medications Current Medications Medications Dose Ordered Sig/Reilly Route Start Time Stop Time Status Last Admin Dose Admin Ceftriaxone Sodium 50 ml @ 100 mls/hr DAILY IV 05/08/25 10:00 Clindamycin Phosphate 50 ml @ 50 mls/hr Q8HR IV 05/07/25 06:00 05/07/25 05:04 50 MLS/HR Acetaminophen/ Hydrocodone Bitart 1 tab Q6HP PRN PO 05/07/25 00:45 Ondansetron HCl 4 mg Q4HP PRN IV 05/07/25 00:45 Acetaminophen 650 mg Q6HP PRN PO 05/07/25 00:45 Examination General Appearance: Alert, Oriented X3, Cooperative, No acute distress HEENT: Atraumatic, PERRLA, EOMI, Mucous membrane moist/pink Respiratory: Clear to auscultation, Normal air movement Cardiovascular: Regular rate, Normal S1, Normal S2, No murmurs, no chest wall tenderness Abdominal: Normal bowel sounds, Soft, No tenderness, No hepatospenomegaly, No masses Extremities: No clubbing, No cyanosis, No edema, Normal pulses, No tenderness/swelling Skin: 6 x 6 cm deep ulcer on on anterior surface of right smart, [id number]. With scant amount of purulent discharge, necrotic tissue on the surface, with redness of skin around the ulcer. Neuro: Normal gait, Normal speech, Strength at 5/5 X4 ext, Normal tone, Sensation intact, Cranial nerves 3-12 NL, Reflexes 2+ Psych/Mental Status: Mental status NL, Mood NL laboratory and microbiology Laboratory Tests 05/07/25 08:20 Test 05/07/25 08:20 Range/Units Serum Glucose 126 H 74-106 mg/dL Labs and/or images reviewed: Labs reviewed by me, Image(s) reviewed by me Problem List/Assessment/Plan Problem List/Assessment/Plan Infected traumatic wound, right smart, [id number] Sepsis due to above Transaminitis * X-ray shows, no fracture dislocation or other acute abnormality is seen Plan/recommendation: * Empiric antibiotic clindamycin * Pain killer * Wound and blood culture * Wound consult DIET: Regular diet CODE STATUS: Goal of care discussed for more than 18 minutes, full code DISPOSITION: Med/surge Patient's status and plan discussed with the patient. Case discussed with Dr. Houser. Plan discussed with: Patient, Other (RN) My Orders My Orders Orders - ULICES QUINONES Procedure Category Date Status Time Drug Screen LAB 05/07/25 Logged 08:03 * Surgical Consult CONS 05/07/25 Transmitted Date of Service: May 07, 2025 Billing Provider: VIANEY JARAMILLO MD Common Visit Codes: [id number] INP/OBS CARE(HIGH) ULICES QUINONES RESDIENT May 07, 2025 10:19 VIANEY JARAMILLO MD May 07, 2025 16:13
[2025-05-08] VITALS (8 sets, daily range): BP systolic 122–136; BP diastolic 87–95; PULSE 74–88; RESP 18–20; TEMP 97.7–98.4; O2SAT 94–98
[2025-05-08 05:57] LABS: Hematocrit 42.7 % (41.0-53.0); Hemoglobin 15.1 g/dL (13.5-17.5); Mean Corpuscular Hemoglobin 34.1 pg (28.0-32.0); Mean Corpuscular Volume 96.8 fL (80.0-100.0); Nucleated Red Blood Cells % 0.1 %
[2025-05-08 06:02] LABS: Chloride 104 mmol/L (98-107); Potassium 4.0 mmol/L (3.5-5.1); Sodium 139 mmol/L (136-145)
[2025-05-08 06:03] LABS: Anion Gap 8 (5-15); Calcium 9.4 mg/dL (8.7-10.4); Carbon Dioxide 27 mmol/L (20-31)
[2025-05-08 06:08] LABS: BUN/Creatinine Ratio 12.9 (10.0-20.0); Blood Urea Nitrogen 11 mg/dL (9-23)
[2025-05-08 06:20] LABS: Glucose 113 mg/dL (74-106)
[2025-05-08 08:12] LABS: Albumin 4.5 g/dL (3.2-4.8); Bilirubin, Total 1.1 mg/dL (0.2-1.0); Total Protein 7.8 g/dL (5.7-8.2)
[2025-05-08 08:14] LABS: Alanine Aminotransferase 77.0 U/L (7-40); Alkaline Phosphatase 191.0 U/L (46-116); Bilirubin, Direct 0.3 mg/dL (<0.3)
--- NOTE | 2025-05-08 13:43 | DVHPNRES ---
Progress Note Date Seen: May 08, 2025 Resident Creating Document: ULICES QUINONES RESDIENT Medical Necessity Reason Pt with a Central, PICC or Fol: No Subjective Review of Systems Patient seen and examined at the bedside. Patient is feeling better since admission but still complaining of right leg pain. Objective vital signs Vital Sign Date Time Temp Pulse Resp B/P (MAP) Pulse Ox O2 Delivery O2 Flow Rate FiO2 05/08/25 12:35 98.3 78 18 133/94 (107) 94 98.3 05/08/25 08:00 Room Air* 0 21 Total Intake and Output 05/07/25 05/07/25 05/08/25 15:00 23:00 07:00 Intake Total 1050 ml 50 ml Balance 1050 ml 50 ml medications Current Medications Medications Dose Ordered Sig/Reilly Route Start Time Stop Time Status Last Admin Dose Admin Clindamycin Phosphate 50 ml @ 50 mls/hr Q8HR IV 05/07/25 06:00 05/08/25 05:10 50 MLS/HR Acetaminophen/ Hydrocodone Bitart 1 tab Q6HP PRN PO 05/07/25 00:45 Ondansetron HCl 4 mg Q4HP PRN IV 05/07/25 00:45 Acetaminophen 650 mg Q6HP PRN PO 05/07/25 00:45 Examination General Appearance: Alert, Oriented X3, Cooperative, No acute distress HEENT: Atraumatic, PERRLA, EOMI, Mucous membrane moist/pink Respiratory: Clear to auscultation, Normal air movement Cardiovascular: Regular rate, Normal S1, Normal S2, No murmurs, no chest wall tenderness Abdominal: Normal bowel sounds, Soft, No tenderness, No hepatospenomegaly, No masses Extremities: No clubbing, No cyanosis, No edema, Normal pulses, No tenderness/swelling Skin: 6 x 6 cm deep ulcer on on anterior surface of right smart, [id number]. With scant amount of purulent discharge, necrotic tissue on the surface, with redness of skin around the ulcer. Neuro: Normal gait, Normal speech, Strength at 5/5 X4 ext, Normal tone, Sensation intact, Cranial nerves 3-12 NL, Reflexes 2+ Psych/Mental Status: Mental status NL, Mood NL laboratory and microbiology Laboratory Tests 05/08/25 05:20 Test 05/08/25 05:20 Range/Units Serum Glucose 113 H 74-106 mg/dL Microbiology Date/Time Source Procedure Growth Status 05/07/25 00:24 Blood Blood Culture - Preliminary NO GROWTH AFTER 24 HOURS OF INCUBATION. Resulted 05/06/25 23:55 Leg Gram Stain - Final Resulted 05/06/25 23:55 Leg Wound Culture - Preliminary Resulted Problem List/Assessment/Plan Problem List/Assessment/Plan Infected traumatic wound, right smart, [id number] Sepsis due to above Transaminitis * X-ray shows, no fracture dislocation or other acute abnormality is seen * Blood culture shows, Gram-positive cocci in pairs Plan/recommendation: * Continue Empiric antibiotic clindamycin * Pain killer * Wound and blood culture * Wound consult DIET: Regular diet CODE STATUS: Goal of care discussed for more than 18 minutes, full code DISPOSITION: Med/surge Patient's status and plan discussed with the patient. Case discussed with Dr. Houser. Plan discussed with: Patient, Other (RN) My Orders My Orders Orders - ULICES QUINONES Procedure Category Date Status Time * Dietary Consult CONS 05/08/25 Transmitted 11:03 Cleanse Wound With PEGGY 05/08/25 In Process Wound Clean 10:10 Date of Service: May 08, 2025 Billing Provider: VIANEY JARAMILLO MD Common Visit Codes: [id number] INP/OBS CARE(HIGH) ULICES QUINONES RESDIENT May 08, 2025 13:43 VIANEY JARAMILLO MD May 10, 2025 16:56
--- NOTE | 2025-05-08 16:51 | MEDREC ---
[facility] Intervention Section I [facility] Intervention: Review courses of therapy (PLEASE CONSIDER ADDING GRAM NEGATIVE COVERAGE FOR GRAM NEG RODS FOUND IN WOUND (LEG) CULTURE) AB ALNGSTON PHARMACIST May 08, 2025 16:51
[2025-05-08] MEDS: HYDROcodone-ACET 5/325MG TAB PO PRN (22:44)
[2025-05-09 01:03] VITALS: BP 144/92; PULSE 85; RESP 20; TEMP 98; O2SAT 97
[2025-05-09 05:22] VITALS: BP 123/93; PULSE 70; RESP 20; TEMP 98; O2SAT 97
[2025-05-09 05:34] LABS: Hematocrit 42.0 % (41.0-53.0); Hemoglobin 15.0 g/dL (13.5-17.5); Mean Corpuscular Hemoglobin 34.7 pg (28.0-32.0); Mean Corpuscular Volume 96.9 fL (80.0-100.0); Nucleated Red Blood Cells % 0.1 %
[2025-05-09 05:49] LABS: Albumin 4.6 g/dL (3.2-4.8); Anion Gap 9 (5-15); BUN/Creatinine Ratio 13.8 (10.0-20.0); Blood Urea Nitrogen 12 mg/dL (9-23); Calcium 9.4 mg/dL (8.7-10.4); Carbon Dioxide 26 mmol/L (20-31); Chloride 103 mmol/L (98-107); Potassium 4.2 mmol/L (3.5-5.1); Sodium 138 mmol/L (136-145); Total Protein 7.8 g/dL (5.7-8.2)
[2025-05-09 05:50] LABS: Bilirubin, Total 1.0 mg/dL (0.2-1.0)
[2025-05-09 05:56] LABS: Alanine Aminotransferase 103 U/L (7-40); Alkaline Phosphatase 190 U/L (46-116); Glucose 113 mg/dL (74-106)
[2025-05-09 08:00] VITALS: PULSE 74; RESP 18; O2SAT 99
[2025-05-09 09:00] VITALS: BP 136/95; PULSE 74; RESP 18; TEMP 97.7; O2SAT 99
[2025-05-09 12:23] VITALS: BP 131/94; PULSE 87; RESP 18; TEMP 97.4; O2SAT 98
[2025-05-09] MEDS ORDERED: CLIN1CAP70 PO (12:23)
--- NOTE | 2025-05-09 12:28 | DVHDSRES ---
Discharge Summary Date of Admission Resident Creating Document: ULICES QUINONES May 07, 2025 at 00:39 Date of Discharge: May 09, 2025 Labs/Diagnostic Data: Laboratory Results Test 05/09/25 05:01 05/08/25 05:20 05/07/25 08:20 05/07/25 00:16 White Blood Count 8.6 10^3/uL (4.4-10.8) Red Blood Count 4.34 10^6/uL (4.5-5.90) Hemoglobin 15.0 g/dL (13.5-17.5) Hematocrit 42.0 % (41.0-53.0) Mean Corpuscular Volume 96.9 fL (80.0-100.0) Mean Corpuscular Hemoglobin 34.7 pg (28.0-32.0) Mean Corpuscular Hemoglobin Concent 35.8 g/dL (32.0-36.0) Red Cell Distribution Width 13.3 % (11.8-14.3) Platelet Count 228 10^3/uL (140-450) Mean Platelet Volume 8.1 fL (6.9-10.8) Neutrophils (%) (Auto) 68.4 % (37.0-80.0) Lymphocytes (%) (Auto) 21.5 % (10.0-50.0) Monocytes (%) (Auto) 7.8 % (0.0-12.0) Eosinophils (%) (Auto) 1.9 % (0.0-7.0) Basophils (%) (Auto) 0.4 % (0.0-2.0) Neutrophils # (Auto) 5.9 10 ^3/uL (1.6-8.6) Lymphocytes # (Auto) 1.9 10 ^3/uL (0.4-5.4) Monocytes # (Auto) 0.7 10 ^3/uL (0-1.3) Eosinophils # (Auto) 0.2 10 ^3/uL (0-0.8) Basophils # (Auto) 0 10 ^3/uL (0-0.2) Nucleated Red Blood Cells 0.1 % Sodium Level 138 mmol/L (136-145) Potassium Level 4.2 mmol/L (3.5-5.1) Chloride Level 103 mmol/L (98-107) Carbon Dioxide Level 26 mmol/L (20-31) Anion Gap 9 (5-15) Blood Urea Nitrogen 12 mg/dL (9-23) Creatinine 0.87 mg/dL (0.700-1.30) Glomerular Filtration Rate Calc 110 mL/min (>90) BUN/Creatinine Ratio 13.8 (10.0-20.0) Serum Glucose 113 mg/dL (74-106) Calcium Level 9.4 mg/dL (8.7-10.4) Total Bilirubin 1.0 mg/dL (0.2-1.0) Aspartate Amino Transferase (AST) 112 U/L (13-40) Alanine Aminotransferase (ALT) 103 U/L (7-40) Alkaline Phosphatase 190 U/L (46-116) Total Protein 7.8 g/dL (5.7-8.2) Albumin 4.6 g/dL (3.2-4.8) Direct Bilirubin 0.3 mg/dL (<0.3) Magnesium Level 2.3 mg/dL (1.6-2.6) Plasma/Serum Blood Alcohol < 3.0 mg/dL (<10) Lactic Acid Level 2.0 mmol/L (0.4-2.0) Other Laboratory Tests 05/09/25 05:01 Brief Hx & Hospital Course: HISTORY OF PRESENT ILLNESS: This is a 45-year-old male with no significant past medical history came to the hospital due to nonhealing traumatic injury below the right knee. Per patient, 1 week back he tripped, fell and hit his right smart on stone. Post fall, he had abrasion and sloughing of the skin, with mild bleeding. He denies loss of consciousness, nausea and vomiting. The wound progressively worsened, increased pain, and started to have scant amount purulent discharge. HOSPITAL COURSE: Patient was admitted due to infected traumatic wound. The patient was started on empiric antibiotic of clindamycin. X-ray performed, showed no fracture dislocation or other acute abnormality is seen. Wound care nurse consulted, cleaned the wound, and change dressing on daily basis. Blood culture performed, showed no growth. On 05/09, the patient was feeling better. Pain had improved, discharge plan discussed with the patient the patient discharged home. DISCHARGE PLAN: Follow up with the PCP within 1 week of the discharge. Follow up with the discharge Clinic within 1 week of discharge. Follow up with the Wound culture definitive results. Clindamycin for 7 days Continue home meds FINAL DIAGNOSIS: Infected traumatic wound, right smart, [id number] Cellulitis Sepsis due to above Transaminitis Non-healing wound of right lower extremity Condition at Discharge: Stable Final Diagnosis/Problems List sepsis due to below cellulitis, purulent, s/p traumatic wound Infected traumatic wound, right smart, [id number] Transaminitis Non-healing wound of right lower extremity Discharge Disposition: Home Discharge Instruct/Medications Diet: Regular Activity: No Restrictions, As Tolerated Follow Up/Referral: Follow up with the PCP within 1 week of the discharge. Follow up with the discharge Clinic within 1 week of the discharge. Medications: Clindamycin for 7 days Scheduled Clindamycin Hcl (Clindamycin Hcl), 300 MG PO TID Yeast (S. Boulardii)(S. Cerevi (Florastor), 250 MG PO BID Discharge Statement: "Patient was advised to return to the ER or call 911 if any headaches, dizziness, shortness of breath, chest pain, abdominal pain, bleeding, fevers, or worsening of medical condition. Patient was counseled about treatment plan, medications, possible side effects, patientverbalized understanding. All questions were answered to the best of my ability. This discharge took greater then 30 minutes in planning, reviewing documentation, counseling the patient, and discussing with other team members." ASSESSMENT ASSESSMENT Assessment Leg infection Date of Service: May 09, 2025 Billing Provider: IVANEY JARAMILLO MD Common Visit Codes: 44739-QAK/OBS DISCH DAY >30min ULICES QUINONES RESDIENT May 09, 2025 12:28 VIANEY JARAMILLO MD May 10, 2025 16:48
[2025-05-09] MEDS ORDERED: SACC250C PO (12:43)
[2025-05-09 14:50] VITALS: BP 131/94; PULSE 87; RESP 18; TEMP 97.4; O2SAT 98
== END 2025-05-09 18:15 | disposition home or self-care (01) | DRG 720 ==
LOC: ER 22:45 → OVERFLOW 05-07 00:39 → EAST 05-07 23:00
PROVIDERS: ADMIT Student in an Organized Health Care Education/Training Program; ATTEND Student in an Organized Health Care Education/Training Program
DX: A41.9 Sepsis, unspecified organism (principal); S71.101A Unspecified open wound, right thigh, initial encounter; L03.115 Cellulitis of right lower limb; L08.9 Local infection of the skin and subcutaneous tissue, unspecified; E78.5 Hyperlipidemia, unspecified; F41.9 Anxiety disorder, unspecified; K21.9 Gastro-esophageal reflux disease without esophagitis; R74.01 Elevation of levels of liver transaminase levels; Y92.89 Other specified places as the place of occurrence of the external cause; W18.09XA Striking against other object with subsequent fall, initial encounter
CPT/HCPCS: 36415; 73590; 80048; 80053; 80076; 80320; 83605; 83735; 85025; 87040; 87077; 87081; 87186; 87205; 90715; G0378; J3490